=== PATIENT | female | born 1995 | race Hispanic/Latino ===

== ENCOUNTER 2018-05-12 20:00 | Inpatient (IN) | payer OTHER ==
[2018-05-13] MEDS ORDERED: HYDROcodone/Acetaminophen 5/325 mg Tablet PO PRN (02:51)
[2018-05-13] MEDS ORDERED: Methylergonovine 0.2 MG/ML VIAL IM PRN (02:51)
[2018-05-13] MEDS ORDERED: Ondansetron HCl/PF 4 MG/2 ML Vial IVP PRN (02:51)
[2018-05-13] MEDS ORDERED: Diphenoxylate HCl/Atropine Tablet PO PRN (02:51)
[2018-05-13] MEDS ORDERED: NS / Oxytocin 40 units/1000ml 1,000 ML IV PRN (02:51)
[2018-05-13] MEDS ORDERED: Lidocaine 1% (PF) 30 ML VIAL SC PRN (02:51)
[2018-05-13] MEDS ORDERED: Ibuprofen 800 MG TAB PO PRN (02:51)
[2018-05-13] MEDS ORDERED: Carboprost 250 MCG/ML AMP IM PRN (02:51)
[2018-05-13] MEDS ORDERED: Butorphanol Tartrate 1 MG/ML VIAL SLOW IVP PRN (02:51)
[2018-05-13] MEDS ORDERED: Calcium Gluc 4.6 MEQ/10 ML (100 MG/ML) SLOW IVP PRN (02:51)
[2018-05-13] MEDS ORDERED: NS w/ Oxytocin 10 units 500 ML IV SCH ×2 (02:51)
[2018-05-13] MEDS ORDERED: Misoprostol 200 MCG TAB PR PRN (02:51)
[2018-05-13] MEDS ORDERED: Magnesium Sulfate 20 GM/WATER 500 ML BAG IVPB SCH (03:00)
[2018-05-13] MEDS ORDERED: Magnesium Sulfate 20 gm/500 ml 20 GM/500 ML BAG IVPB SCH (03:20)
[2018-05-13 03:32] LABS: Hemoglobin 12.8 g/dL (12.0-16.0); Mean Corpuscular HGB CONC 34.6 g/dL (32.0-36.0); Mean Corpuscular Hemoglobin 28.9 pg (27.0-31.0); Mean Corpuscular Volume 83.5 fL (78.0-98.0); Mean Platelet Volume 8.8 fL (7.4-10.4); Platelet Count 201 thou/uL (130-400); RBC Distribution Width 13.3 % (11.5-14.5); Red Blood Cell (RBC) Count 4.45 mill/uL (4.20-5.40); White Blood Cell (WBC) Count 8.7 thou/uL (4.8-10.8)
[2018-05-13] MEDS: Misoprostol 100 MCG TAB VAG SCH ×4 (03:54→20:16)
[2018-05-13 04:15] LABS: HBSAg Index 0.18 S/CO (0-0.99); Hep B Surf Ag Non-Reactive S/CO (NonReactive)
[2018-05-13 05:48] LABS: Syphilis Antibody Nonreactive (Nonreactive); Syphilis Antibody Index 0.06 S/CO (<1.00 Non-Reactive)
[2018-05-13] MEDS: Lactated Ringer's 1,000 ML IV SCH (10:32)
[2018-05-13] MEDS ORDERED: ePHEDrine/0.9% NaCl/PF SYRINGE 50 mg/10 ml ONE (20:56)
[2018-05-13] MEDS ORDERED: Bupivacaine/Epinephrine 0.25% 30 ML VIAL ONE (20:56)
[2018-05-14] MEDS: Misoprostol 100 MCG TAB VAG SCH ×2 (01:44→07:51)
[2018-05-14] MEDS: Lactated Ringer's 1,000 ML IV SCH (05:38)
[2018-05-14] MEDS ORDERED: Ondansetron HCl/PF 4 MG/2 ML Vial ONE ×2 (13:46→18:30)
[2018-05-14] MEDS ORDERED: PHENYLEPHRINE-NS 100 MCG/ML 10 ML SYRINGE ONE ×2 (13:46→17:37)
[2018-05-14] MEDS ORDERED: Ketorolac Tromethamine 30 MG/ML VIAL ONE ×3 (13:46→18:36)
[2018-05-14] MEDS ORDERED: Bicitra 30 ML UDCUP ONE (17:13)
[2018-05-14] MEDS ORDERED: CEFAZOLIN 2 GM in Sodium Chloride 0.9% 100 ML IVPB ONE (17:15)
[2018-05-14] MEDS ORDERED: CEFAZOLIN/Water 2 GM/20 ML SYRINGE SLOW IVP SCH (17:30)
[2018-05-14] MEDS ORDERED: Morphine PF 1 MG/ML SYR ONE (17:36)
[2018-05-14] MEDS ORDERED: Bupivacaine 0.75% W/DEXTROSE 8.25% 2 ML AMP ONE (17:37)
[2018-05-14] MEDS ORDERED: Oxytocin 10 UNITS/ML VIAL ONE ×3 (17:37→21:15)
[2018-05-14] MEDS ORDERED: Lidocaine 1% PF 5 ML VIAL ONE (17:37)
[2018-05-14] MEDS ORDERED: Meperidine HCl/PF 25 MG/ML VIAL SLOW IVP PRN ×2 (17:59→19:26)
[2018-05-14] MEDS ORDERED: HYDROmorphone 2 MG/ML VIAL SLOW IVP PRN ×2 (17:59→19:26)
[2018-05-14] MEDS ORDERED: diphenhydrAMINE 50 MG/ML VIAL IVP PRN ×2 (17:59→19:28)
[2018-05-14] MEDS ORDERED: Promethazine HCl 25 MG SUPP PR PRN (17:59)
[2018-05-14] MEDS ORDERED: Naloxone HCl 0.4 mg/ml Vial IVP PRN ×2 (17:59)
[2018-05-14] MEDS ORDERED: Ondansetron HCl/PF 4 MG/2 ML Vial IVP PRN ×3 (17:59→23:13)
[2018-05-14] MEDS ORDERED: Promethazine HCl 25 MG/ML VIAL IM PRN (17:59)
[2018-05-14] MEDS ORDERED: Naloxone HCl 0.4 mg/ml Vial IV PRN (17:59)
[2018-05-14] MEDS ORDERED: Eucerin (Mineral Oil/Petrolatum,White) 30 gm Jar TOP PRN (17:59)
[2018-05-14] MEDS ORDERED: Communication Order-Pharmacy FS SCH (18:00)
[2018-05-14] MEDS ORDERED: Ketorolac Tromethamine 30 MG/ML VIAL IVP SCH (18:00)
[2018-05-14] MEDS ORDERED: cloNIDine 0.1 MG TAB PO PRN (19:10)
[2018-05-14] MEDS ORDERED: hydrALAZINE 20 MG/ML VIAL ONE ×2 (20:50→21:49)
[2018-05-14] MEDS ORDERED: hydrALAZINE 20 MG/ML VIAL SLOW IVP SCH (21:00)
[2018-05-14] MEDS ORDERED: hydrALAZINE 20 MG/ML VIAL SLOW IVP PRN (21:20)
[2018-05-14] MEDS ORDERED: Magnesium Sulfate 20 gm/500 ml 6 GM/150 ML BAG IVPB SCH (22:45)
[2018-05-14] MEDS ORDERED: Simethicone Chewable 80 MG TAB PO PRN (23:13)
[2018-05-14] MEDS ORDERED: Meperidine HCl/PF 25 MG/ML VIAL IM PRN (23:13)
[2018-05-14] MEDS ORDERED: Bisacodyl 10 MG SUPP PR PRN (23:13)
[2018-05-14] MEDS ORDERED: NS / Oxytocin 40 units/1000ml 1,000 ML IV SCH (23:13)
[2018-05-14] MEDS ORDERED: Lanolin Ointment 7 GM TUBE TOP PRN (23:13)
[2018-05-14] MEDS ORDERED: HYDROcodone/Acetaminophen 5/325 mg Tablet PO PRN (23:13)
[2018-05-14] MEDS ORDERED: diphenhydrAMINE 25 MG CAP PO PRN (23:13)
[2018-05-14] MEDS ORDERED: Docusate Calcium (SURFAK) 240 MG CAP PO SCH (23:30)
[2018-05-15] MEDS: Ketorolac Tromethamine 30 MG/ML VIAL IVP PRN ×3 (03:16→15:15)
[2018-05-15] MEDS: Magnesium Sulfate 20 gm/500 ml 20 GM/500 ML BAG IVPB SCH ×2 (06:31→17:37)
[2018-05-15 07:28] LABS: Hemoglobin 10.9 g/dL (12.0-16.0); Mean Corpuscular HGB CONC 33.8 g/dL (32.0-36.0); Mean Corpuscular Hemoglobin 28.7 pg (27.0-31.0); Mean Corpuscular Volume 84.9 fL (78.0-98.0); Mean Platelet Volume 8.8 fL (7.4-10.4); Platelet Count 175 thou/uL (130-400); RBC Distribution Width 13.3 % (11.5-14.5); White Blood Cell (WBC) Count 8.6 thou/uL (4.8-10.8)
[2018-05-15] MEDS: Ferrous Sulfate 325 MG TAB PO SCH ×2 (09:11→22:24)
[2018-05-15] MEDS: Prenatal Vitamin 1 TAB PO SCH (09:12)
[2018-05-15] MEDS: Docusate Calcium (SURFAK) 240 MG CAP PO SCH ×2 (09:12→22:21)
[2018-05-15] MEDS ORDERED: Ketorolac Tromethamine 30 MG/ML VIAL ONE (15:12)
[2018-05-15] MEDS: HYDROcodone/Acetaminophen 5/325 mg Tablet PO PRN (22:14)
[2018-05-16] MEDS: HYDROcodone/Acetaminophen 5/325 mg Tablet PO PRN ×4 (06:00→20:49)
[2018-05-16] MEDS: Docusate Calcium (SURFAK) 240 MG CAP PO SCH ×2 (12:06→20:49)
[2018-05-16] MEDS: Ferrous Sulfate 325 MG TAB PO SCH ×2 (12:07→16:52)
[2018-05-16] MEDS: Prenatal Vitamin 1 TAB PO SCH (12:08)
[2018-05-17] MEDS: HYDROcodone/Acetaminophen 5/325 mg Tablet PO PRN ×3 (01:06→12:17)
[2018-05-17] MEDS: Prenatal Vitamin 1 TAB PO SCH (08:10)
[2018-05-17] MEDS: Docusate Calcium (SURFAK) 240 MG CAP PO SCH (08:10)
[2018-05-17] MEDS: Ferrous Sulfate 325 MG TAB PO SCH (08:10)
[2018-05-17 11:49] VITALS: BP 132/82; TEMP 98.6
== END 2018-05-17 16:15 | disposition home or self-care (01) | DRG 766 ==
LOC: L&D 05-13 02:41 → 3SE 05-15 21:54
PROVIDERS: ADMIT Family Medicine; ATTEND Family Medicine
PROC: 10D00Z1 Extraction of Products of Conception, Low, Open Approach (ICD-10-PCS; principal; 2018-05-14)
DX: O15.1 Eclampsia complicating labor (principal); O61.0 Failed medical induction of labor; Z3A.38 38 weeks gestation of pregnancy; Z37.0 Single live birth
CPT/HCPCS: 36415; 51702; 76815; 81003; 85027; 86780; 86850; 86900; 86901; 87340; J0360; J1885; J2001; J2274; J2405; J2590; J3475; J3490

== ENCOUNTER 2023-08-12 08:02 | Day surgery (SDC) | payer SELFPAY ==
[~2023-08-12 08:02] MED LIST: Dexmedetomidine 200 MCG/2 ML VIAL ONE; EPINEPHrine 1 MG/ML AMP ONE; SUGAMMADEX SODIUM 200 MG/2 ML VIAL ONE; fentaNYL PF 100 MCG/2 ML SYRINGE ONE
[2023-08-12] MEDS ORDERED: Rocuronium Bromide 10 MG/ML (10ML VIAL) ONE (08:03)
[2023-08-12] MEDS ORDERED: NEOSTIGMINE 3 MG/3 ML SYR 3 MG/3 ML SYRINGE ONE (08:03)
[2023-08-12] MEDS ORDERED: PROPOFOL 200 MG/20 ML VIAL ONE (08:03)
[2023-08-12] MEDS ORDERED: Lidocaine 1% PF 5 ML VIAL ONE (08:03)
[2023-08-12] MEDS ORDERED: Ondansetron PF 4 MG/2 ML Vial ONE (08:03)
[2023-08-12] MEDS ORDERED: Glycopyrrolate 0.2 MG/ML 5 ML SYRINGE ONE (08:03)
[2023-08-12] MEDS ORDERED: Dexamethasone 20 MG/5 ML VIAL ONE (08:03)
[2023-08-12] MEDS ORDERED: fentaNYL 50 mcg/mL 1 mL Vial ONE (10:00)
[2023-08-12] MEDS ORDERED: HYDROcodone/Acetaminophen 5/325 mg Tablet ONE ×2 (13:16→13:55)
== END 2023-08-12 14:15 | disposition home or self-care (01) ==
LOC: SDC 08:02
PROVIDERS: ATTEND Specialist
PROC: 0FT44ZZ Resection of Gallbladder, Percutaneous Endoscopic Approach (ICD-10-PCS; principal; 2023-08-12)
DX: K80.12 Calculus of gallbladder with acute and chronic cholecystitis without obstruction (principal)
CPT/HCPCS: 88304; J0171; J1100; J2405; J2704; J3010